=== PATIENT | male | born 1995 | race African-American/Black ===

== ENCOUNTER 2019-11-26 10:24 | Emergency (ER) | payer OTHER ==
[~2019-11-26] VITALS: Ht 177.8 cm; Wt 106.6 kg
[2019-11-26 11:02] VITALS: Ht 177.8 cm; Wt 106.6 kg
[2019-11-26 13:10] VITALS: BP 105/71
== END 2019-11-26 13:10 | disposition home or self-care (01) ==
LOC: ED 10:24
DX: R05 Cough (principal); R09.81 Nasal congestion; R51 Headache; R11.0 Nausea